=== PATIENT | male | born 1990 | race Hispanic/Latino ===

== ENCOUNTER 2021-08-20 21:22 | Emergency (ER) | payer OTHER ==
[~2021-08-20] VITALS: Ht 182.9 cm; Wt 86.2 kg
[2021-08-20 21:33] VITALS: BP 128/63
[2021-08-20] MEDS ORDERED: ACET1TAB25 PO (22:23)
[2021-08-20] MEDS ORDERED: IBUPROFEN 600 MG TABLET PO ONE (22:30)
[2021-08-20] MEDS ORDERED: HYDROCODONE/ACETAMINOPHEN 5/325 MG TAB PO ONE (22:30)
== END 2021-08-20 22:32 | disposition home or self-care (01) ==
LOC: EDH 21:22
DX: S62.231A Other displaced fracture of base of first metacarpal bone, right hand, initial encounter for closed fracture (principal); Z79.1 Long term (current) use of non-steroidal anti-inflammatories (NSAID); X58.XXXA Exposure to other specified factors, initial encounter; Y93.89 Activity, other specified; Y92.89 Other specified places as the place of occurrence of the external cause; Y99.8 Other external cause status
CPT/HCPCS: 29125; 73130

== ENCOUNTER 2022-01-17 11:45 | Emergency (ER) | payer OTHER ==
[~2022-01-17] VITALS: Ht 182.9 cm; Wt 87.5 kg
[~2022-01-17 11:45] MED LIST: ACET-2079 PO
[2022-01-17] MEDS ORDERED: FAMOTIDINE 20MG VIAL IV ONE (12:00)
[2022-01-17] MEDS ORDERED: ONDANSETRON 4MG INJ IVP ONE (12:00)
[2022-01-17] MEDS ORDERED: 0.9%NACL 1000ML 1,000 ML IV SCH (12:00)
[2022-01-17 12:19] LABS: BASOPHILS % (AUTO) 0.2 % (0.0-5.0); HEMATOCRIT 44.2 % (42-54); LYMPHOCYTES % (AUTO) 17.7 % (21.0-51.0); MEAN CORPUSCULAR HEMOGLOBIN 30.5 pg (27.0-33.0); MEAN CORPUSCULAR HGB CONC 32.8 g/dL (32.0-36.0); MEAN CORPUSCULAR VOLUME 93.1 fL (79-99); MONOCYTES % (AUTO) 8.9 % (3.0-13.0); PLATELET COUNT (AUTO) 154 K/uL (130-400); RED BLOOD CELL COUNT(AUTO) 4.75 MIL/uL (4.50-6.20); RED CELL DISTRIBUTION WIDTH 12.6 % (11.0-15.5); WHITE BLOOD COUNT (AUTO) 5.2 K/uL (4.8-10.8)
[2022-01-17 12:36] LABS: CREATININE 1.3 mg/dL (0.5-1.5); POTASSIUM 4.2 mmol/L (3.5-5.1)
[2022-01-17 12:41] LABS: ALBUMIN 3.8 g/dL (3.5-5.0); TOTAL PROTEIN, SERUM 7.2 g/dL (6.0-8.3)
[2022-01-17 13:19] VITALS: BP 107/67
[2022-01-17] MEDS ORDERED: LACT1CAP81 PO (13:19)
[2022-01-17] MEDS ORDERED: ONDA4TAB10 SL (13:19)
[2022-01-17] MEDS ORDERED: NIRM1TAB5 PO (13:19)
[2022-01-17] MEDS ORDERED: FAMO-136 PO (13:19)
== END 2022-01-17 13:35 | disposition home or self-care (01) ==
LOC: EDH 11:45
DX: U07.1 COVID-19 (principal)
CPT/HCPCS: 99284; 87635; 96374; 96361; 96375; 80053; 85025; 87804 ×2; 36415; C9803; J3490; J7030; J2405

== ENCOUNTER 2022-05-06 00:57 | Emergency (ER) | payer OTHER ==
[~2022-05-06] VITALS: Ht 182.9 cm; Wt 91.6 kg
[~2022-05-06 00:57] MED LIST changes: +FAMO-136 PO; +LACT1CAP81 PO; +NIRM1TAB5 PO; +ONDA4TAB10 SL
[2022-05-06] MEDS ORDERED: ONDANSETRON ODT 4MG TAB ONE (01:26)
[2022-05-06 01:27] LABS: BASOPHILS % (AUTO) 0.1 % (0.0-5.0); EOSINOPHILS % (AUTO) 0.9 % (0.0-8.0); HEMATOCRIT 39.9 % (42-54); LYMPHOCYTES % (AUTO) 10.8 % (21.0-51.0); MEAN CORPUSCULAR HEMOGLOBIN 30.6 pg (27.0-33.0); MEAN CORPUSCULAR HGB CONC 34.6 g/dL (32.0-36.0); MEAN CORPUSCULAR VOLUME 88.5 fL (79-99); NEUTROPHILS % (AUTO) 80.8 % (40.0-77.0); PLATELET COUNT (AUTO) 155 K/uL (130-400); RED BLOOD CELL COUNT(AUTO) 4.51 MIL/uL (4.50-6.20); RED CELL DISTRIBUTION WIDTH 12.6 % (11.0-15.5); WHITE BLOOD COUNT (AUTO) 7.4 K/uL (4.8-10.8)
[2022-05-06] MEDS ORDERED: ONDANSETRON ODT 4MG TAB SL ONE (01:30)
[2022-05-06 01:36] LABS: CREATININE 1.4 mg/dL (0.5-1.5); POTASSIUM 3.6 mmol/L (3.5-5.1)
[2022-05-06 01:38] LABS: INR 0.98 (0.85-1.15); PROTHROMBIN TIME 10.7 SEC (9.6-11.6)
[2022-05-06 01:40] LABS: PARTIAL THROMBOPLASTIN TIME 27.2 SEC (26.3-35.5)
[2022-05-06 01:41] LABS: ALBUMIN 3.9 g/dL (3.5-5.0); TOTAL PROTEIN, SERUM 7.1 g/dL (6.0-8.3)
[2022-05-06] MEDS ORDERED: 0.9%NACL 1000ML 1,000 ML IV ONE (03:00)
[2022-05-06] MEDS ORDERED: PANTOPRAZOLE 40 MG/VIAL IVP STA (03:00)
[2022-05-06] MEDS ORDERED: PANT40GR PO (04:23)
[2022-05-06 04:39] VITALS: BP 129/63
== END 2022-05-06 04:38 | disposition home or self-care (01) ==
LOC: EDH 00:57
DX: K29.71 Gastritis, unspecified, with bleeding (principal); Z79.899 Other long term (current) drug therapy
CPT/HCPCS: 99283; 96374; 96361; 80053; 85025; 85610; 85730; 36415; 85014; 85018; J7030; C9113